=== PATIENT | male | born 1975 | race African-American/Black ===

== ENCOUNTER 2018-01-20 20:07 | Emergency (ER) | payer MEDICAID ==
[~2018-01-20] VITALS: Ht 188 cm; Wt 106.0 kg
[2018-01-20 23:47] VITALS: BP 120/83
== END 2018-01-20 23:50 | disposition home or self-care (01) ==
LOC: ER 20:07
DX: S43.402A Unspecified sprain of left shoulder joint, initial encounter (principal); V49.9XXA Car occupant (driver) (passenger) injured in unspecified traffic accident, initial encounter; Y93.89 Activity, other specified; Y92.410 Unspecified street and highway as the place of occurrence of the external cause
CPT/HCPCS: 73030; 99284